=== PATIENT | male | born 1995 | race Two or more races ===

== ENCOUNTER 2019-06-20 10:36 | Emergency (ER) | payer OTHER ==
[2019-06-20 11:09] VITALS: BP 127/69; PULSE 80; TEMP 98.4; BMI 28.8
[2019-06-20] MEDS ORDERED: KETOROLAC TROMETHAMINE 30 MG/1 ML VIAL IM ONE (12:06)
[2019-06-20] MEDS ORDERED: CYCLOBENZAPRINE HCL 10 MG TABLET (FP) PO ONE (12:07)
--- NOTE | 2019-06-20 12:11 | PDOC ---
History of Present Illness - General Chief Complaint: Back Pain Stated Complaint: LOWER BACK PAIN Time Seen by Provider: 06/20/19 11:56 History Source: Patient Exam Limitations: No Limitations - History of Present Illness Initial Comments: 06/20/19 12:07 24 year old male with no significant medical or surgical history presents with reports of lower back pain x 2 days. Patient reports he is required to do a lot of heavy lifting and he reports no recent injuries. Also reports no pain radiation into legs, no numbness or tingling also. Taking no medication so far. Pain is with or without movement. Occurred: reports: this morning (2 days) Severity: reports: mild Pain Location: reports: back Method of Injury: Yes: unknown Modifying Factors: improves with: None Loss of Consciousness: no loss of consciousness Associated Symptoms (Fall): denies symptoms Past History - Travel Traveled outside of the country in the last 30 days: No Close contact w/someone who was outside of country & ill: No - Past Medical History Allergies/Adverse Reactions: Allergies Allergy/AdvReac Type Severity Reaction Status Date / Time No Known Allergies Allergy Verified 08/01/18 18:45 Home Medications: Ambulatory Orders Cyclobenzaprine HCl [Flexeril -] 10 mg PO HS #7 tablet 06/20/19 Ibuprofen [Ibu] 600 mg PO TID #21 tablet 06/20/19 COPD: No - Immunization History Immunization Up to Date: Yes - Suicide/Smoking/Psychosocial Hx Smoking History: Never smoked Hx Alcohol Use: Yes (OCCASIONALLY) Drug/Substance Use Hx: No Trauma Specific PMHX - Complaint Specific PMHX Arthritis: No Back Injury: No Neck Injury: No Hx Sacro Iliac Joint Dysfunction: No Review of Systems - Review of Systems Able to Perform ROS?: Yes Is the patient limited [place]ian proficient: No Constitutional: No: Chills, Fever HEENTM: No: Nose Congestion, Throat Pain, Throat Swelling Respiratory: No: Orthopnea, Wheezing Cardiac (ROS): No: Lightheadedness ABD/GI: No: Nausea, Poor Appetite, Vomiting, Abdominal cramping : No: Pain, Testicular Swelling Musculoskeletal: Yes: Back Pain, Joint Pain Integumentary: No: Bruising, Erythema, Flushing Neurological: No: Numbness, Paresthesia, Weakness Endocrine: No: Increased Hunger *Physical Exam - Vital Signs Last Vital Signs Temp Pulse Resp BP Pulse Ox 98.4 F 80 16 127/69 98 06/20/19 11:06 06/20/19 11:06 06/20/19 11:06 06/20/19 11:06 06/20/19 11:06 - Physical Exam General Appearance: Yes: Nourished, Appropriately Dressed HEENT: positive: TMs Normal, Pharynx Normal Neck: positive: Supple. negative: Lymphadenopathy (R), Lymphadenopathy (L) Respiratory/Chest: positive: Lungs Clear Cardiovascular: positive: Regular Rhythm, Regular Rate Musculoskeletal: positive: Normal Inspection, Other (pain aggravated in lower leg with straight leg raise). negative: CVA Tenderness (R), CVA Tenderness (L) , Decreased Range of Motion, Vertebral Tenderness Extremity: positive: Normal Inspection Neurologic: positive: Fully Oriented, Alert Medical Decision Making - Medical Decision Making 06/20/19 12:12 24 year old male with no significant medical or surgical history presents with reports of lower back pain x 2 days. analgesia given will check urine 06/20/19 13:19 negative urinalysis pain better after medication will d/c with nsaids and muscle relaxant refer to ortho *DC/Admit/Observation/Transfer Diagnosis at time of Disposition: Back pain Qualifiers: Back pain location: low back pain Chronicity: acute Back pain laterality: bilateral Sciatica presence: without sciatica Qualified Code(s): M54.5 - Low back pain - Discharge Dispostion Disposition: HOME Condition at time of disposition: Good Decision to Admit order: No - Prescriptions Prescriptions: Cyclobenzaprine HCl [Flexeril -] 10 mg PO HS #7 tablet Ibuprofen [Ibu] 600 mg PO TID #21 tablet - Referrals Referrals: Jeanie Carter [Primary Care Provider] - (call for follow up appointment ) - Patient Instructions Printed Discharge Instructions: Low Back Pain Additional Instructions: Please apply warm compress to area for 20 minutes 3 to 4 times daily Take medication as prescribed Call orthopedic for follow up appointment Print Language: SETSWANA - Post Discharge Activity Forms/Work/School Notes: Back to Work
[2019-06-20] MEDS ORDERED: KETOROLAC TROMETHAMINE 30 MG/1 ML VIAL ONE (12:12)
[2019-06-20] MEDS ORDERED: CYCLOBENZAPRINE HCL 10 MG TABLET (FP) ONE (12:12)
[2019-06-20 12:58] LABS: PH,URINE 6.5 (5.0-8.0); URINE APPEARANCE CLEAR; URINE BILIRUBIN NEGATIVE (NEGATIVE); URINE COLOR YELLOW; URINE GLUCOSE (UA) NEGATIVE (NEGATIVE); URINE KETONE NEGATIVE (NEGATIVE); URINE LEUK ESTERASE NEGATIVE (NEGATIVE); URINE NITRITE NEGATIVE (NEGATIVE); URINE PROTEIN NEGATIVE (NEGATIVE)
== END 2019-06-20 13:30 | disposition home or self-care (01) ==
LOC: JERFT 10:36
PROC: 3E0233Z Introduction of Anti-inflammatory into Muscle, Percutaneous Approach (ICD-10-PCS; principal; 2019-06-20)
DX: M54.5 Low back pain (principal)
CPT/HCPCS: 81003; 96372; 99281-25